=== PATIENT | female | born 1955 | race Caucasian/White ===

== ENCOUNTER 2019-03-31 08:00 | Outpatient (CLI) | payer MEDICARE ==
[2019-03-31 17:37] LABS: BILIRUBIN,URINE NEGATIVE (NEGATIVE); GLUCOSE, URINE (UA) NEGATIVE (NEGATIVE); KETONES,URINE (UA) NEGATIVE (NEGATIVE); LEUKOCYTE ESTERASE, URINE SMALL (NEGATIVE); NITRITE,URINE NEGATIVE (NEGATIVE); OCCULT BLOOD,URINE MODERATE (NEGATIVE); PROTEIN,URINE NEGATIVE (NEGATIVE); UROBILINOGEN,URINE 0.2 (NORMAL) E.U./dL (NORMAL)
[2019-03-31 17:48] LABS: BACTERIA,URINE None Seen /HPF (None Seen); CLARITY,URINE HAZY (CLEAR); EPITHELIAL CELLS,UR FEW Transitional /HPF (<= Few); RBC,URINE TNTC /HPF (0-5); SQUAMOUS EPITHELIAL CELL,UR NONE SEEN (<= Few)
== END 2019-03-31 23:59 | disposition home or self-care (01) ==
LOC: LAB.R 08:00
PROVIDERS: ATTEND Nurse Practitioner Family
DX: R39.15 Urgency of urination (principal)
CPT/HCPCS: 81001; 81003; 87086; 87181

== ENCOUNTER 2019-09-16 07:00 | Outpatient (CLI) | payer MEDICARE, MEDICAID ==
[2019-09-16 17:12] LABS: BASOPHILS # (AUTO) 0.1 10^3/uL (0.0-0.1); EOSINOPHILS # (AUTO) 0.1 10^3/uL (0.0-0.7); EOSINOPHILS % (AUTO) 1.5 %; HGB - HEMOGLOBIN 14.8 g/dL (12.0-16.0); LYMPHOCYTES # (AUTO) 1.8 10^3/uL (1.5-3.5); LYMPHOCYTES % (AUTO) 30.3 %; MEAN CORPUSCULAR HEMOGLOBIN 29.5 pg (27.0-31.0); MEAN CORPUSCULAR HGB CONC 32.9 g/dL (32.0-36.0); MEAN CORPUSCULAR VOLUME 89.8 fL (81.0-99.0); MEAN PLATELET VOLUME 10.6 fL (7.9-10.8); MONOCYTES # (AUTO) 0.4 10^3/uL (0.0-1.0); NEUTROPHILS # (AUTO) 3.6 10^3/uL (1.5-6.6); PLT - PLATELET COUNT 172 10^3/uL (130-450); RED BLOOD COUNT 5.01 10^6/uL (4.20-5.40); RED CELL DISTRIBUTION WIDTH 12.7 % (12.0-15.0)
[2019-09-16 17:41] LABS: HB2 TOTAL 15.7 g/dL; HEMOGLOBIN A1C 0.55 g/dL; HEMOGLOBIN A1C % 5.4 % (4.6-6.2)
[2019-09-16 17:47] LABS: ALBUMIN 4.6 g/dL (3.2-5.5); ALBUMIN/GLOBULIN RATIO 1.6 (1.0-2.2); ALKALINE PHOSPHATASE 46 IU/L (42-121); ALT ALANINE AMINOTRANSFERASE 23 IU/L (10-60); AST ASPARTATE AMINOTRANSFERASE 25 IU/L (10-42); BILIRUBIN,TOTAL 0.9 mg/dL (0.2-1.0); BUN - BLOOD UREA NITROGEN 18 mg/dL (6-20); CALCIUM 9.6 mg/dL (8.5-10.3); CARBON DIOXIDE - CO2 26 mmol/L (21-32); CHLORIDE 106 mmol/L (101-111); GFR - MDRD 56 (>89); GLUCOSE 89 mg/dL (70-100); SODIUM 138 mmol/L (135-145); TOTAL PROTEIN 7.4 g/dL (6.7-8.2)
[2019-09-16 17:56] LABS: CRP - C-REACTIVE PROTEIN < 1.0 mg/dL (0-1.0)
== END 2019-09-16 23:59 | disposition home or self-care (01) ==
LOC: LAB.S 07:00
PROVIDERS: ATTEND Family Medicine
DX: N76.0 Acute vaginitis (principal); M79.7 Fibromyalgia; R73.9 Hyperglycemia, unspecified; M35.3 Polymyalgia rheumatica
CPT/HCPCS: 36415; 80053; 83036; 85025; 85651; 86140; 87661; 87801

== ENCOUNTER 2019-09-16 13:00 | Outpatient (CLI) | payer MEDICARE ==
[2019-09-16 23:24] LABS: CANDIDA GROUP DNA NEGATIVE (NEGATIVE); CANDIDA KRUSEI DNA NEGATIVE (NEGATIVE); TRICHOMONAS VAGINALIS DNA NEGATIVE (NEGATIVE)
== END 2019-09-16 23:59 | disposition home or self-care (01) ==
LOC: LAB.R 13:00
PROVIDERS: ATTEND Family Medicine
DX: N76.0 Acute vaginitis (principal)
CPT/HCPCS: 87661; 87801

== ENCOUNTER 2019-11-04 18:31 | Outpatient (CLI) | payer MEDICARE | END 2019-11-04 18:32 | disposition critical access hospital (66) | LOC: EMS 18:31 | PROVIDERS: ATTEND Surgery | DX: R11.2 Nausea with vomiting, unspecified (principal); R51 Headache; R53.1 Weakness; R42 Dizziness and giddiness | CPT/HCPCS: A0425; A0427 ==

== ENCOUNTER 2019-11-04 19:31 | Emergency (ER) | payer MEDICARE ==
[2019-11-04] MEDS ORDERED: MECLIZINE 12.5 MG TABLET PO STA ×2 (20:01→21:37)
--- NOTE | 2019-11-04 20:02 | ED Physician Documentation ---
History of Present Illness - Stated complaint Stated Complaint: N/V, VERTIGO - Chief complaint Chief Complaint: General - History obtained from History obtained from: Patient, EMS - History of Present Illness Timing: Last night (64-year-old woman with recurrent vertigo has had severe vertigo since last night. She is really been unable to get out of bed because of it. It is much worse with position changes and she describes as room spinning. She had Zofran prior to arrival which helped her nausea which has been otherwise severe since last night. She also has a throbbing headache with it.) Review of Systems Constitutional: reports: Reviewed and negative. denies: Fatigue Ears: reports: Tinnitus/ringing Nose: denies: Rhinorrhea / runny nose, Congestion Cardiac: denies: Chest pain / pressure, Palpitations Respiratory: denies: Dyspnea, Cough PD PAST MEDICAL HISTORY - Past Medical History Past Medical History: Yes Cardiovascular: None Respiratory: Emphysema Neuro: None Endocrine/Autoimmune: None GI: None STRING CUTTER: None : None HEENT: None Psych: None Musculoskeletal: Chronic back pain Derm: None - Past Surgical History Past Surgical History: Yes General: Other /STRING CUTTER: Hysterectomy HEENT: Rhinoplasty, Tonsil/Adenoidectomy - Present Medications Home Medications: Ambulatory Orders Medication Instructions Recorded Confirmed Meclizine HCl 25 mg PO Q6H PRN #15 tab.chew 11/04/19 Ondansetron Odt [Zofran] 4 mg TL Q6H PRN #10 tablet 11/04/19 - Allergies Allergies/Adverse Reactions: Allergies Allergy/AdvReac Type Severity Reaction Status Date / Time No Known Drug Allergies Allergy Verified 11/04/19 19:48 - Social History Does the pt smoke?: No Smoking Status: Never smoker Does the pt drink ETOH?: Yes Does the pt have substance abuse?: No - Immunizations Immunizations are current?: Yes - POLST Patient has POLST: No PD ED PE NORMAL - Vitals Vital signs reviewed: Yes - General General: Alert and oriented X 3, Other (She appears uncomfortable and is resistant to head rotation because of her dizziness) - HEENT HEENT: PERRL, Ears normal, Other (Having a hard time opening her eyes due to the vertigo and is difficult to assess nystagmus and extraocular movements on initial examination. Smile and forehead are symmetric.) - Neck Neck: Supple, no meningeal sign, No bony TTP - Cardiac Cardiac: RRR, No murmur - Respiratory Respiratory: No respiratory distress, Clear bilaterally - Abdomen Abdomen: Soft, Non tender - Derm Derm: Normal color, Warm and dry - Extremities Extremities: No edema, No calf tenderness / cord - Neuro Neuro: Alert and oriented X 3, No motor deficit, No sensory deficit, Normal speech, Other (Normal xbtsoy-ef-hkee and ghot-km-mcpc testing) Eye Opening: Spontaneous Motor: Obeys Commands Verbal: Oriented GCS Score: 15 Results - Vitals Vitals: Vital Signs - 24 hr 11/04/19 11/04/19 11/04/19 19:40 19:48 20:10 Temperature 37.7 C H Heart Rate 55 L 51 L 49 L Respiratory 16 17 16 Rate Blood Pressure 120/86 H 108/75 O2 Saturation 100 100 100 11/04/19 21:26 Temperature Heart Rate 47 L Respiratory 17 Rate Blood Pressure 134/77 H O2 Saturation 100 Oxygen O2 Source Room air - EKG (time done) 1939 Rate: Rate (enter#) (53) Rhythm: NSR [place]: RAD Intervals: Normal FL QRS: Normal Ischemia: Normal ST segments Computer interpretation: Agree with computer - Labs Labs: Laboratory Tests 11/04/19 11/04/19 20:08 20:08 WBC 5.9 RBC 5.09 Hgb 15.1 Hct 44.7 MCV 87.8 MCH 29.7 MCHC 33.8 RDW 12.4 Plt Count 181 MPV 10.4 Neut # (Auto) 4.0 Lymph # (Auto) 1.4 L Elliott # (Auto) 0.4 Eos # (Auto) 0.0 Baso # (Auto) 0.1 Absolute Nucleated RBC 0.00 Nucleated RBC % 0.0 Sodium 142 Potassium 3.6 Chloride 109 Carbon Dioxide 22 Anion Gap 11.0 BUN 14 Creatinine 1.0 Estimated GFR (MDRD) 56 L Glucose 94 Calcium 9.3 Total Bilirubin 1.5 H AST 24 ALT 22 Alkaline Phosphatase 48 Total Protein 7.3 Albumin 4.4 Globulin 2.9 Albumin/Globulin Ratio 1.5 Lipase 49 PD MEDICAL DECISION MAKING - ED course ED course: 64-year-old woman with apparent recurrent peripheral vertigo but associated with a headache but CT imaging was negative. After the administration of meclizine and Zofran she was ambulatory with still negative neurologic examination. She ambulated independently. She could rotate her head without persistent dizziness. Passed a p.o. challenge. Departure - Departure Disposition: 01 Home, Self Care Clinical Impression: Vertigo Condition: Good Record reviewed to determine appropriate education?: Yes Instructions: ED Vertigo Unspecified, Meclizine Prescriptions: Meclizine HCl 25 mg PO Q6H PRN #15 tab.chew PRN Reason: Dizziness Ondansetron Odt [Zofran] 4 mg TL Q6H PRN #10 tablet PRN Reason: Nausea / Vomiting Comments: You can take meclizine, 25 mg every 6 hours as needed for dizziness, return for new or worsening symptoms. Do not drink or drive while taking the meclizine. Follow-up with your doctor next week for recheck.
[2019-11-04 20:20] LABS: BASOPHILS # (AUTO) 0.1 10^3/uL (0.0-0.1); EOSINOPHILS % (AUTO) 0.5 %; HGB - HEMOGLOBIN 15.1 g/dL (12.0-16.0); LYMPHOCYTES # (AUTO) 1.4 10^3/uL (1.5-3.5); LYMPHOCYTES % (AUTO) 23.4 %; MEAN CORPUSCULAR HEMOGLOBIN 29.7 pg (27.0-31.0); MEAN CORPUSCULAR HGB CONC 33.8 g/dL (32.0-36.0); MEAN CORPUSCULAR VOLUME 87.8 fL (81.0-99.0); MEAN PLATELET VOLUME 10.4 fL (7.9-10.8); MONOCYTES # (AUTO) 0.4 10^3/uL (0.0-1.0); MONOCYTES % (AUTO) 7.1 %; NEUTROPHILS % (AUTO) 67.8 %; PLT - PLATELET COUNT 181 10^3/uL (130-450); RED BLOOD COUNT 5.09 10^6/uL (4.20-5.40); RED CELL DISTRIBUTION WIDTH 12.4 % (12.0-15.0); WHITE BLOOD COUNT 5.9 x10^3/uL (4.8-10.8)
[2019-11-04] MEDS ORDERED: SODIUM CHLORIDE 0.9% 1,000 ML IV ONE (20:24)
[2019-11-04 20:25] LABS: ALBUMIN 4.4 g/dL (3.2-5.5); ALBUMIN/GLOBULIN RATIO 1.5 (1.0-2.2); BILIRUBIN,TOTAL 1.5 mg/dL (0.2-1.0); CALCIUM 9.3 mg/dL (8.5-10.3); TOTAL PROTEIN 7.3 g/dL (6.7-8.2)
--- NOTE | 2019-11-04 21:11 | CT Report ---
Reason: headache vertigo Procedure Date: 11/04/2019 Accession Number: [id number] / [id number] Procedure: CT - HEAD WO CPT Code: Final Report FULL RESULT: EXAM: CT HEAD EXAM DATE: 11/04/2019 08:42 PM. CLINICAL HISTORY: Headache vertigo. COMPARISON: 05/07/2007 TECHNIQUE: Multiaxial CT images were obtained from the foramen magnum to the vertex. Reformats: Sagittal and coronal. IV contrast: None. In accordance with CT protocol optimization, one or more of the following dose reduction techniques were utilized for this exam: automated exposure control, adjustment of mA and/or KV based on patient size, or use of iterative reconstructive technique. FINDINGS: Parenchyma: No intraparenchymal hemorrhage. No evidence of mass, midline shift or CT findings of acute territorial infarction. Sheppard-white differentiation is distinct. Extraaxial Spaces: No subdural or epidural collections identified. Ventricles: No hydrocephalus Sinuses: Imaged paranasal sinuses, orbits, and mastoids show no significant abnormality. Bones: No evidence of acute fracture or calvarial defect. Other: None. IMPRESSION: No acute intracranial abnormalities. RADIA
[2019-11-04] MEDS ORDERED: ONDANSETRON ODT 4 MG Prepack 2 TL STA (21:37)
[2019-11-04 22:19] VITALS: BP 107/79
== END 2019-11-04 22:19 | disposition home or self-care (01) ==
LOC: EDUNIT# → ED 19:31
DX: H81.399 Other peripheral vertigo, unspecified ear (principal); R51 Headache; R11.0 Nausea
CPT/HCPCS: 36415; 70450; 80053; 83690; 85025; 93005; 96360; 96361; 99284; A9270

== ENCOUNTER 2021-08-22 08:41 | Outpatient (CLI) | payer MEDICARE, MEDICAID ==
[2021-08-22 14:37] LABS: ALBUMIN 4.4 g/dL (3.2-5.5); ALBUMIN/GLOBULIN RATIO 1.5 (1.0-2.2); ALKALINE PHOSPHATASE 54 IU/L (42-121); ALT ALANINE AMINOTRANSFERASE 26 IU/L (10-60); AST ASPARTATE AMINOTRANSFERASE 27 IU/L (10-42); BILIRUBIN,TOTAL 1.2 mg/dL (0.2-1.0); BUN - BLOOD UREA NITROGEN 15 mg/dL (6-20); CALCIUM 9.6 mg/dL (8.5-10.3); CARBON DIOXIDE - CO2 24 mmol/L (21-32); CHLORIDE 107 mmol/L (101-111); CHOL/HDL RATIO 4.4 (<4.4); CHOLESTEROL 245 mg/dL; GFR - MDRD 56 (>89); GLUCOSE 91 mg/dL (70-100); HDL CHOLESTEROL 56 mg/dL; LDL CHOLESTEROL,CALCULATED 167 mg/dL; SODIUM 141 mmol/L (135-145); TOTAL PROTEIN 7.4 g/dL (6.7-8.2); TRIGLYCERIDES 109 mg/dL; VLDL CHOLESTEROL 22 mg/dL
[2021-08-22 14:40] LABS: BASOPHILS % (AUTO) 0.9 %; EOSINOPHILS # (AUTO) 0.1 10^3/uL (0.0-0.7); EOSINOPHILS % (AUTO) 1.3 %; HCT - HEMATOCRIT 45.2 % (37.0-47.0); HGB - HEMOGLOBIN 14.8 g/dL (12.0-16.0); LYMPHOCYTES # (AUTO) 1.4 10^3/uL (1.5-3.5); LYMPHOCYTES % (AUTO) 30.4 %; MEAN CORPUSCULAR HEMOGLOBIN 29.1 pg (27.0-31.0); MEAN CORPUSCULAR HGB CONC 32.7 g/dL (32.0-36.0); MEAN CORPUSCULAR VOLUME 88.8 fL (81.0-99.0); MEAN PLATELET VOLUME 10.7 fL (7.9-10.8); MONOCYTES # (AUTO) 0.3 10^3/uL (0.0-1.0); MONOCYTES % (AUTO) 7.2 %; NEUTROPHILS # (AUTO) 2.8 10^3/uL (1.5-6.6); PLT - PLATELET COUNT 190 10^3/uL (130-450); RED BLOOD COUNT 5.09 10^6/uL (4.20-5.40); WHITE BLOOD COUNT 4.6 x10^3/uL (4.8-10.8)
[2021-08-22 14:50] LABS: THYROID STIMULATING HORMONE 5.51 uIU/mL (0.34-5.60)
== END 2021-08-22 08:42 | disposition home or self-care (01) ==
LOC: LAB.S 08:41
PROVIDERS: ATTEND Registered Nurse
DX: Z79.899 Other long term (current) drug therapy (principal); Z13.220 Encounter for screening for lipoid disorders; M35.3 Polymyalgia rheumatica; M79.7 Fibromyalgia
CPT/HCPCS: 36415; 80053; 80061; 83721; 84443; 85025

== ENCOUNTER 2021-09-17 10:09 | Emergency (ER) | payer MEDICARE, MEDICAID ==
--- NOTE | 2021-09-17 11:04 | XRAY Report ---
PROCEDURE: Shoulder 3 View LT INDICATIONS: Left shoulder pain TECHNIQUE: 3 views of the shoulder were acquired. COMPARISON: None. FINDINGS: BONES: No acute, displaced fracture or dislocation. The glenohumeral and acromioclavicular joint spac es are maintained. SOFT TISSUES: 8 mm density overlying the humeral head on the internal rotation AP view, which may ref lect calcific tendinopathy or artifact. No pneumothorax. IMPRESSION: 1.No acute osseous abnormality. Reviewed by: Mio Mccarthy MD on 09/17/2021 11:03 AM PDT Approved by: Mio Mccarthy MD on 09/17/2021 11:03 AM PDT Station ID: [id number]
[2021-09-17] MEDS ORDERED: KETOROLAC 60 MG/2 ML VIAL IM STA (12:03)
--- NOTE | 2021-09-17 12:05 | ED Physician Documentation ---
PD HPI UPPER EXT INJURY - Stated complaint Stated Complaint: SHLDR PX - Chief complaint Chief Complaint: Ext Problem - History obtained from History obtained from: Patient - Additonal information Additional information: 66-year-old woman with neck problems and rheumatoid arthritis predominantly in the spine getting methotrexate therapy presents with severe left shoulder pain starting 2 nights ago. Earlier in the day she did have to do a good grade for her But when about 12 hours after that before it started hurting. About 15 minutes before it started hurting she had several very loud sneezes. Other than that she was just brushing her teeth and getting back into bed when it started. It is pain over the left glenohumeral joint and hurts quite a bit to move it. There is no radiation of the pain. No fevers or chills. Review of Systems Constitutional: reports: Reviewed and negative Eyes: reports: Reviewed and negative Ears: reports: Reviewed and negative Nose: reports: Reviewed and negative Throat: reports: Reviewed and negative PD PAST MEDICAL HISTORY - Past Medical History Cardiovascular: None Respiratory: Emphysema Neuro: None Endocrine/Autoimmune: None GI: None CARD GAME OPERATOR: None : None HEENT: None Psych: None Musculoskeletal: Chronic back pain Derm: None - Past Surgical History Past Surgical History: Yes General: Other /CARD GAME OPERATOR: Hysterectomy HEENT: Rhinoplasty, Tonsil/Adenoidectomy - Present Medications Home Medications: Ambulatory Orders Medication Instructions Recorded Confirmed Meclizine HCl 25 mg PO Q6H PRN #15 tab.chew 11/04/19 Ondansetron Odt [Zofran] 4 mg TL Q6H PRN #10 tablet 11/04/19 HYDROcod/ACETAM 5/325 [[place] 5/325] 1 - 2 tab PO Q6H PRN #15 tablet 09/17/21 predniSONE [Deltasone] 20 mg PO [id number] #21 tab 09/17/21 - Allergies Allergies/Adverse Reactions: Allergies Allergy/AdvReac Type Severity Reaction Status Date / Time No Known Drug Allergies Allergy Verified 09/17/21 10:28 - Social History Does the pt smoke?: No Smoking Status: Never smoker Does the pt drink ETOH?: Yes Does the pt have substance abuse?: No - Immunizations Immunizations are current?: Yes - POLST Patient has POLST: No PD ED PE NORMAL - Vitals Vital signs reviewed: Yes - General General: Alert and oriented X 3, No acute distress - Extremities Extremities: Other (She is quite tender over the glenohumeral joint. There is no warmth. Internal and external rotation is relatively painless. She can abduct to about 90 degrees. Negative supraspinatus testing. No rash.) - Neuro Neuro: Alert and oriented X 3, Normal speech Results - Vitals Vitals: Vital Signs - 24 hr 09/17/21 10:23 Temperature 36.4 C L Heart Rate 68 Respiratory 16 Rate Blood Pressure 120/77 O2 Saturation 97 Oxygen O2 Source Room air - Rads (name of study) Three-view x-ray of the left shoulder demonstrates calcific tendinopathy, otherwise negative Radiology: EMP read contemporaneously PD MEDICAL DECISION MAKING - ED course ED course: 66-year-old woman with what seems like an acute arthritis of the left shoulder joint. No evidence of septic arthritis or infection. No shingles rash. I am prescribing a short course of short-acting opioid pain medication for this patient. I have reviewed the patients CLINICAL APPLICATION MANAGER and no concerning findings were noted. I have discussed that the opioids are for short term therapy only, and will not be refilled from the ED. Departure - Departure Disposition: Home, Self Care Clinical Impression: Arthritis of left shoulder region Condition: Good Record reviewed to determine appropriate education?: Yes Instructions: ED Arthritis Rheumatoid Prescriptions: predniSONE [Deltasone] 20 mg PO [id number] #21 tab HYDROcod/ACETAM 5/325 [[place] 5/325] 1 - 2 tab PO Q6H PRN #15 tablet PRN Reason: Pain Comments: Follow-up with your doctor in a week for recheck. Return for new or worsening symptoms. Prescription sent electronically to the [facility] drug. I am prescribing a short course of narcotic pain medication for you. These are potentially dangerous and addictive medications that should be used carefully. These medications may constipate you. Take an onsr-ajc-snuvwiw stool softener (docusate) twice daily with plenty of water while taking these medications. If you go 24 hours without a bowel movement, take mwhx-dlj-zwpsmau miralax, per package instructions. Do not drink or drive while taking these medications. If you received narcotic or sedating medications while in the emergency department, do not drive for 24 hours. Store this medication in a safe, secure place and out of reach of children. It is a violation of federal law to give or sell this medication to another person or to use in a manner other than prescribed. The ED will not refill narcotic prescriptions, including prescriptions lost or stolen. To dispose of unwanted medications: 1. [facility] at [address] in [place] has a medication drop box. They accept prescription medications (in pill form) Friday through Friday 9:00 a.m. to 5:00 p.m. 2. The [facility] [employer] accepts prescription medications (in pill form only) for disposal year round. Call for more information. 3. Contact the [facility] for the next [facility] sponsored prescription drug collection event. , [phone], or [phone]; Note that many narcotic pain relievers also contain Tylenol/acetaminophen. Please ensure that your total dose of acetaminophen from all sources does not exceed 3 g (3000 mg) per day.
[2021-09-17 12:21] VITALS: BP 132/70
== END 2021-09-17 12:29 | disposition home or self-care (01) ==
LOC: ED 10:09
DX: M19.012 Primary osteoarthritis, left shoulder (principal); M06.9 Rheumatoid arthritis, unspecified
CPT/HCPCS: 96372; 99283

== ENCOUNTER 2021-09-21 10:00 | Outpatient (CLI) | payer MEDICARE, MEDICAID ==
[2021-09-21 14:49] LABS: CRP - C-REACTIVE PROTEIN < 1.0 mg/dL (0-1.0)
[2021-09-21 14:50] LABS: URIC ACID 4.8 mg/dL (2.6-7.2)
[2021-09-21 15:14] LABS: HCT - HEMATOCRIT 44.8 % (37.0-47.0); HGB - HEMOGLOBIN 14.6 g/dL (12.0-16.0); MEAN CORPUSCULAR HEMOGLOBIN 29.7 pg (27.0-31.0); MEAN CORPUSCULAR HGB CONC 32.6 g/dL (32.0-36.0); MEAN CORPUSCULAR VOLUME 91.1 fL (81.0-99.0); MEAN PLATELET VOLUME 10.9 fL (7.9-10.8); RED BLOOD COUNT 4.92 10^6/uL (4.20-5.40); RED CELL DISTRIBUTION WIDTH 12.9 % (12.0-15.0)
[2021-09-21 15:23] LABS: RHEUMATOID FACTOR NEGATIVE (Negative)
[2021-09-24 11:51] LABS: ANA SCREEN NEGATIVE (NEGATIVE)
[2021-09-25 09:30] LABS: DNA (DS) ANTIBODY <1 IU/mL
[2021-09-25 21:22] LABS: CYCLIC CITRULL PEPTIDE CCP IGG <16 UNITS
== END 2021-09-21 10:01 | disposition home or self-care (01) ==
LOC: LAB.S 10:00
PROVIDERS: ATTEND Registered Nurse
DX: M19.90 Unspecified osteoarthritis, unspecified site (principal); M79.7 Fibromyalgia; M54.50 Low back pain, unspecified; G89.29 Other chronic pain; M35.3 Polymyalgia rheumatica
CPT/HCPCS: 36415; 84550; 85027; 85651; 86038; 86140; 86200; 86225; 86430

== ENCOUNTER 2022-10-18 18:06 | Emergency (ER) | payer MEDICARE, MEDICAID ==
[2022-10-18] MEDS ORDERED: RABIES VACCINE 2.5 UNIT SYRINGE IM ONE (20:25)
[2022-10-18] MEDS ORDERED: RABIES IMMUNE GLOBULIN 300 UNITS/2 ML IM STA (20:25)
--- NOTE | 2022-10-18 20:32 | ED Physician Documentation ---
History of Present Illness - Stated complaint Stated Complaint: BAT BITE - Chief complaint Chief Complaint: Wound - History obtained from History obtained from: Patient - History of Present Illness Timing: Today Pain level max: 0 Pain level now: 0 - Additonal information Additional information: Patient is a 67-year-old female who presents to the emergency department stating that she was outside today when a bat flew into her hair. She is concerned about potential bat bite. She denies any other symptoms at this time. No fever. No chills. She is requesting rabies vaccination. Review of Systems Constitutional: denies: Fever, Chills Respiratory: denies: Cough GI: denies: Vomiting, Diarrhea PD PAST MEDICAL HISTORY - Past Medical History Past Medical History: Yes Cardiovascular: None Respiratory: Emphysema Neuro: None Endocrine/Autoimmune: None GI: None HOSPITAL CLERK: None : None HEENT: None Psych: None Musculoskeletal: Chronic back pain Derm: None - Past Surgical History Past Surgical History: Yes General: Other /HOSPITAL CLERK: Hysterectomy HEENT: Rhinoplasty, Tonsil/Adenoidectomy - Present Medications Home Medications: Ambulatory Orders Medication Instructions Recorded Confirmed Meclizine HCl 25 mg PO Q6H PRN #15 tab.chew 11/04/19 Ondansetron Odt [Zofran] 4 mg TL Q6H PRN #10 tablet 11/04/19 HYDROcod/ACETAM 5/325 [[place] 5/325] 1 - 2 tab PO Q6H PRN #15 tablet 09/17/21 predniSONE [Deltasone] 20 mg PO [id number] #21 tab 09/17/21 - Allergies Allergies/Adverse Reactions: Allergies Allergy/AdvReac Type Severity Reaction Status Date / Time No Known Drug Allergies Allergy Verified 10/18/22 18:21 - Social History Does the pt smoke?: No Smoking Status: Never smoker Does the pt drink ETOH?: Yes Does the pt have substance abuse?: No - Immunizations Immunizations are current?: Yes - POLST Patient has POLST: No PD ED PE NORMAL - Vitals Vital signs reviewed: Yes - General General: Alert and oriented X 3, No acute distress - HEENT HEENT: PERRL, Moist mucous membranes - Neck Neck: Supple, no meningeal sign - Cardiac Cardiac: RRR - Respiratory Respiratory: No respiratory distress, Clear bilaterally - Derm Derm: Warm and dry - Neuro Neuro: Alert and oriented X 3 - Psych Psych: Normal mood, Normal affect Results - Vitals Vitals: Vital Signs - 24 hr 10/18/22 10/18/22 18:17 20:52 Temperature 36.3 C L 36.9 C Heart Rate 72 71 Respiratory 16 17 Rate Blood Pressure 114/72 114/71 O2 Saturation 99 100 Oxygen O2 Source Room air PD MEDICAL DECISION MAKING - ED course Complexity details: considered differential, d/w patient ED course: Patient with a bat exposure. Requesting rabies vaccine. Rabies vaccination given. Rabies immunoglobulin given. Patient counseled that she will need the remainder of the rabies vaccination series. Patient asymptomatic. Patient counseled regarding signs and symptoms for which I believe and urgent re- evaluation would be necessary. Patient with good understanding of and agreement to plan and is comfortable going home at this time This document was made in part using voice recognition software. While efforts are made to proofread this document, sound alike and grammatical errors may occur. Departure - Departure Disposition: 01 Home, Self Care Clinical Impression: Need for rabies vaccination, Exposure to bat without known bite Condition: Good Instructions: Rabies Vaccine suspension for injection, Rabies Immune Globulin human RIG solution for injection, Rabies Follow-Up: Alicia Vital ARNP [Primary Care Provider] - Within 3 Days Comments: You will need 3 more doses of the rabies vaccine. Today is day 0. You will need a dose on day 3, day 7 and day 14. This would be October 21, , and November 01. You can contact your primary care provider to see if they can send a prescription to the [facility] clinic at the hospital for the remainder of the vaccinations, however given the holidays, this may not be feasible. If they are unable to arrange this, you should return to the emergency department for the remainder of your vaccinations. Discharge Date/Time: 10/18/22 21:00
[2022-10-18 20:53] VITALS: BP 114/71
== END 2022-10-18 21:00 | disposition home or self-care (01) ==
LOC: ED 18:06
DX: Z20.3 Contact with and (suspected) exposure to rabies (principal); Z29.14 Encounter for prophylactic rabies immune globulin
CPT/HCPCS: 90471; 99282; 99283

== ENCOUNTER 2022-10-21 10:10 | Emergency (ER) | payer MEDICARE, MEDICAID ==
[2022-10-21 10:20] VITALS: BP 135/74
[2022-10-21] MEDS ORDERED: RABIES VACCINE 2.5 UNIT SYRINGE IM ONE (11:09)
--- NOTE | 2022-10-21 11:57 | ED Physician Documentation ---
History of Present Illness - Stated complaint Stated Complaint: RABIES SHOT - Chief complaint Chief Complaint: General - History obtained from History obtained from: Patient - History of Present Illness Timing: Today Pain level max: 0 Pain level now: 0 - Additonal information Additional information: Patient is here for her second rabies vaccination. States that she had no side effects from the first vaccination. Patient is asymptomatic. 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 : None HEENT: None Psych: None Musculoskeletal: Chronic back pain Derm: None - Past Surgical History Past Surgical History: Yes General: Other /WEIGHT AND TEST BAR CLERK: Hysterectomy HEENT: Rhinoplasty, Tonsil/Adenoidectomy - Present Medications Home Medications: Ambulatory Orders Medication Instructions Recorded Confirmed Meclizine HCl 25 mg PO Q6H PRN #15 tab.chew 11/04/19 Ondansetron Odt [Zofran] 4 mg TL Q6H PRN #10 tablet 11/04/19 HYDROcod/ACETAM 5/325 [[place] 5/325] 1 - 2 tab PO Q6H PRN #15 tablet 09/17/21 predniSONE [Deltasone] 20 mg PO [id number] #21 tab 09/17/21 - Allergies Allergies/Adverse Reactions: Allergies Allergy/AdvReac Type Severity Reaction Status Date / Time No Known Drug Allergies Allergy Verified 10/18/22 18:21 - Social History Does the pt smoke?: No Smoking Status: Never smoker Does the pt drink ETOH?: Yes Does the pt have substance abuse?: No - Immunizations Immunizations are current?: Yes - POLST Patient has POLST: No PD ED PE NORMAL - Vitals Vital signs reviewed: Yes - General General: Alert and oriented X 3, No acute distress - HEENT HEENT: Moist mucous membranes - Neck Neck: Supple, no meningeal sign - Respiratory Respiratory: No respiratory distress - Derm Derm: Warm and dry - Neuro Neuro: Alert and oriented X 3 - Psych Psych: Normal mood, Normal affect Results - Vitals Vitals: Vital Signs - 24 hr 10/21/22 10:17 Temperature 37.1 C Heart Rate 78 Respiratory 25 H Rate Blood Pressure 135/74 H O2 Saturation 99 Oxygen O2 Source Room air PD MEDICAL DECISION MAKING - ED course Complexity details: considered differential, d/w patient ED course: Patient is here for rabies vaccination. Patient is asymptomatic. Rabies vaccination given. She will return in 4 days for her next vaccination. This document was made in part using voice recognition software. While efforts are made to proofread this document, sound alike and grammatical errors may occur. Departure - Departure Disposition: 01 Home, Self Care Clinical Impression: Encounter for repeat administration of rabies vaccination Condition: Good Instructions: Rabies Vaccine suspension for injection Follow-Up: Alicia Vital ARNP [Primary Care Provider] - Comments: Please return on days 7 and 14 for your last 2 vaccinations.
== END 2022-10-21 12:57 | disposition home or self-care (01) ==
LOC: ED 10:10
DX: Z20.3 Contact with and (suspected) exposure to rabies (principal)
CPT/HCPCS: 90471; 99281